=== PATIENT | female | born 1990 | race Caucasian/White ===

== ENCOUNTER 2019-05-31 10:35 | Outpatient (CLI) | payer BC, SELFPAY ==
--- NOTE | 2019-05-31 10:47 | XR_ITS ---
WS: [id number] Right wrist, 3 views, 05/31/2019 Clinical Data: wrist pain Comparison: Right wrist, 01/11/2019. Findings: No fractures or dislocations are seen. The carpal bones are intact. There is no soft tissue swelling. The distal radius and ulna are not remarkable. XR/XR wrist RT min 3V* [id number] Impression: Negative right wrist.
== END 2019-05-31 10:36 | disposition home or self-care (01) ==
LOC: RAD 10:37
PROVIDERS: Family Provider Nurse Practitioner Family; PCP Nurse Practitioner Family; Visit Provider Orthopaedic Surgery
DX: M25.531 Pain in right wrist (principal)
CPT/HCPCS: 73110

== ENCOUNTER 2019-07-04 12:35 | Outpatient (CLI) | payer BC, SELFPAY ==
--- NOTE | 2019-07-04 12:59 | MR_ITS ---
WS: [id number] MRI WRIST ARTHROGRAM INDICATION: Wrist pain TECHNIQUE: Axial PD, axial T2, coronal PD, coronal T1, coronal STIR, coronal 3-D FSPGR, sagittal T1, and multiplanar post arthrogram imaging FINDINGS: No leakage of contrast through the scapholunate or lunotriquetral ligaments. No extension o f contrast into the midcarpal space. Scapholunate ligaments appear intact. Normal scaphoid and lunate . No evidence of bone marrow edema or avascular necrosis. Central and peripheral TFCC appears intact. No extension of contrast into the distal radial ulnar cecilia nt. No extension of contrast along the ulnar aspect of the wrist or extensor carpi ulnaris. Thickening and T2 signal normality involving the extensor carpi ulnaris consistent with tendinopathy. Tenosynovitis along the extensor carpi ulnaris. Small amount of tenosynovitis involving the extensor compartment tendons and extensor carpi radialis brevis and extensor pollicis longus. Flexor compartment tendons are normal in appearance. No bone mar row edema. MR/MR wrist RT wo/w con [id number] IMPRESSION: 1. Scapholunate and lunotriquetral ligaments appear intact. Normal scaphoid an d lunate. 2. TFCC appears intact. 3. Tendinopathy with tenosynovitis along the extensor carpi ulnaris. 4. Small amount of tenosynovitis involving the extensor compartment tendons de scribed above. 5. No acute fractures.
--- NOTE | 2019-07-04 12:59 | IR_ITS ---
WS: [id number] WRIST ARTHROGRAM RIGHT Fluoroscopic guided right wrist arthrogram CLINICAL INFORMATION: PAIN COMPARISON: None. PROCEDURE: The procedure including risks, benefits and complications were discussed with the patient, who agreed to proceed. Using sterile technique, the patient was prepped and draped in the usual ster ile fashion. After 1% lidocaine injection using fluoroscopic guidance, a 25-gauge spinal needle was a dvanced into the radiocarpal joint. Approximately 2.5cc of a solution containing 15 ml normal saline, 5 ml Omnipaque 240 and 0.1 ml gadolinium was administered. No immediate complications. FLUOROSCOPY TIME: 0.7 minutes. IR/[place] [id number] IMPRESSION: Uncomplicated fluoroscopic-guided right wrist arthrogram. MRI to follow.
[2019-07-04] MEDS: iohexol 240 mg/mL 50 mL Btl INTRA-ARTI (14:22)
== END 2019-07-04 12:36 | disposition home or self-care (01) ==
LOC: RADWPI 12:40
PROVIDERS: Family Provider Nurse Practitioner Family; PCP Nurse Practitioner Family; Visit Provider Orthopaedic Surgery
DX: M25.531 Pain in right wrist (principal); M65.88 Other synovitis and tenosynovitis, other site
CPT/HCPCS: 25246; 73223; 77002; A9579; Q9966

== ENCOUNTER 2019-08-15 06:28 | Day surgery (SDC) | payer BC, SELFPAY ==
[2019-08-14 13:05] VITALS: BMI 42.9
[2019-08-15 06:45] VITALS: BP 135/82; PULSE 75; RESP 18; TEMP 36.6; O2SAT 98
--- NOTE | 2019-08-15 06:47 | P.OP_ITS ---
Operative Report Date of procedure: August 15, 2019 Pre-op Diagnosis: right cubital tunnel Post-op diagnosis: same Procedure Done: Decompression of ulnar nerve at right elbow Pathology: none sent Surgeon: Donte Bledsoe Anesthesia: General Estimated blood loss (mL): 5 Tourniquet time (min): 30 Complications: No apparent complications Findings: Tight cubital tunnel. Thick brachial fascia overlaying ulnar nerve in arm. No tendency for ulnar nerve to subluxate following decompression Condition: stable Disposition: PACU Brief History: 28 y/o white female With complaints of numbness and tingling in her right ring and small fingers. Chest positive Tinel's sign in the lower aspect of the right arm along the course of the ulnar nerve. Subjectively she had decreased sensation in the ulnar nerve distribution. She had electrodiagnostic studies consistent with slowing of the ulnar nerve across the elbow. Risks, benefits potential complications of surgery discussed with the patient. Risks include aren't limited to: Infection, nerve/blood vessel/tendon injury, failure to retrieve all symptoms, wound healing complications. Medical complications can include blood clots, heart attack, stroke risk up to including . All questions were answered patient agreeable to proceed with surgery. Procedure: 1.5 g Zinacef Patient identified. Surgical site was signed. Surgical permit was signed. Patient was taken the operating room. She received 1.5 g of Zinacef intravenously for surgical prophylaxis. She was transferred to the operating room table. She is placed under general anesthesia without difficulty. The patient sterilely prepped and draped usual fashion. A sterile tourniquet was applied. A timeout was performed. The operative limb was exsanguinated with Esmarch bandage tourniquet inflated 250 members mercury pressure. A 10 cm curvilinear incision centered over the medial humeral epicondyle was made with a skin knife. Dissection was carried deeper using spreading scissors technique. Crossing veins coagulated with bipolar and standard electrocautery. Self- retaining retractors placed in the wound. We identified the brachial fascia. The brachial fascia was divided using scissors and then with tension elevating the brachial fascia off of the underlying ulnar nerve I pushing scissors technique was used to decompress the ulnar nerve for several centimeters proximal to the actual entrance into the cubital tunnel. Leash of vessels proximal to the cubital tunnel were dissected off of the ulnar nerve and coagulated with bipolar cautery then divided. Fascia the entrance of the cubital tunnel was then divided using scissors technique elevating the fascia off of the underlying ulnar nerve. Pushing scissors technique was then used to divide the heads of the flexor carpi ulnaris overlying the tendon for several centimeters in the proximal forearm. Verified the decompression was complete. The elbow was placed through a range of motion and the decompressed ulnar nerve showed no tendency to subluxate from behind the medial humeral epicondyle. The wound was irrigated with Betadine-containing saline solution and antibiotic containing saline solution. The incisions then closed in layers with Vicryl sutures for subcutaneous closure and rojelio on skin. The incision was injected 20 mL of a one-to-one mixture 1% lidocaine half percent Marcaine with epinephrine. Antibiotic ointment was applied followed by sterile dressings and a posterior splint plaster splint with Andreas overwrap. The tourniquet was deflated at the time of application of dressings. The patient was aroused from general anesthesia. She was taken to the recovery room. She tolerated surgery well. All counts were correct
--- NOTE | 2019-08-15 06:51 | W.PM.OPSUD ---
Surgery/Procedure H&P Update DATE OF PROCEDURE: August 15, 2019 DATE H&P PERFORMED: 07/23/19 H&P UPDATE INFORMATION: I have reviewed H&P completed within last 30 days and I have examined patient prior to procedure PREOP DIAGNOSIS: right cubital tunnel PRIMARY INDICATION FOR PROCEDURE: as above PLANNED PROCEDURE: Operation Date: 08/15/19 08:00 Proposed Procedures p right elbow ulnar nerve decompression vs transposition/ 98616/G56.20(Right) - DO rg Mccray Ulnar Nerve Transposition(Right) - Donte Bledsoe DO
[2019-08-15 06:54] LABS: OR HCG Qualitative Urine Negative (Negative)
--- NOTE | 2019-08-15 07:13 | ANES.PREANE2 ---
Pre-Anesthetic Assessment Pre-Anesthetic Assessment: Height/Weight: Height 1.63 m Weight 113.398 kg Temp Pulse Resp BP Pulse Ox 97.9 F 75 18 135/82 98 08/15/19 06:45 08/15/19 06:45 08/15/19 06:45 08/15/19 06:45 08/15/19 06:45 Preop Diagnosis: right cubital tunnel Proposed Procedure: Operation Date: 08/15/19 08:00 Proposed Procedures p right elbow ulnar nerve decompression vs transposition/ 10686/G56.20(Right) - Donte Bledsoe DO s Ulnar Nerve Transposition(Right) - Donte Bledsoe DO Social: Social History: No alcohol and No tobacco Exam: Pre-Anes Outpt Exam: alert, oriented x 3, clear to auscultation bilaterally and regular rate & rhythm Airway: Submandibular: WNL Cervical ROM: WNL MP: 2 Dentition: Other (teeth ok) History/ROS: No significant history except as noted Pulmonary: Pulmonary: None reported CV/HEM: CV/HEM: None reported : : None reported Hepatic: Hepatic: None reported GI: GI: GERD (occ) Metabolic: Metabolic: Morbid obesity Musc/skel: Musc/skel: None reported Neuropsych: Neuropsych: Anxiety, Depression and Neuropathy (right arm) Anesthetic Plan: ASA status: 2 Anesthesia: Anesthesia Evaluation and General Risk of > 500 ml blood loss (7ml/kg in children): No PFSH Anesthesia PFSH: Medical History Anxiety and depression Fungal toenail infection Neuropathy Surgical History History of placement of ear tubes Hx of meniscectomy of right knee Social History Smoking and tobacco status: never smoked Alcohol intake: never Data Anesthesia Other Labs: Laboratory Results - last 48 hr 08/15/19 06:45 Urine HCG, Qual Negative Cardiac Studies: No Data to Display
[2019-08-15] MEDS: ketorolac 30 mg/mL INJ IVP (07:20)
[2019-08-15] MEDS: sodium chloride 0.9% 1,000 ML 30 ML IV (07:20)
[2019-08-15] MEDS: cefUROXime 1,500 MG in sodium chloride 0.9% (plus) 50 ML 100 MG IV (07:51)
--- NOTE | 2019-08-15 08:16 | SUR.OPER ---
Pt says to not call her to let him know we started - just let him know when we are done
[2019-08-15] MEDS: neomycin-poly-bacitracin oint 28 gm 1 APPLIC TOPICAL (08:41)
--- NOTE | 2019-08-15 08:59 | W.PM.OPSUD ---
Surgery/Procedure H&P Update DATE OF PROCEDURE: August 15, 2019 DATE H&P PERFORMED: 07/23/19 H&P UPDATE INFORMATION: I have reviewed H&P completed within last 30 days, I have examined patient prior to procedure, Changes to prior documentation as noted here and H&P is in [facility] [place] [facility] EMR on date indicated PREOP DIAGNOSIS: right cubital tunnel PRIMARY INDICATION FOR PROCEDURE: as above PLANNED PROCEDURE: Operation Date: 08/15/19 08:00 Proposed Procedures p right elbow ulnar nerve decompression vs transposition/ 79619/G56.20(Right) - DO rg Mccray Ulnar Nerve Transposition(Right) - Donte Bledsoe DO
[2019-08-15 09:03] VITALS: BP 135/72; PULSE 98; RESP 20; TEMP 36.6; O2SAT 100
[2019-08-15 09:10] VITALS: BP 141/74; PULSE 93; RESP 19; O2SAT 100
[2019-08-15 09:15] VITALS: BP 143/83; PULSE 90; RESP 18; O2SAT 100
--- NOTE | 2019-08-15 09:19 | SUR.PHASEI ---
0905 PT HAS SENSATION/MOVEMENT TO R. HAND, CAP REFILL <3 SEC
[2019-08-15 09:20] VITALS: BP 145/79; PULSE 88; RESP 18; TEMP 36.9; O2SAT 95
== END 2019-08-15 09:57 | disposition home or self-care (01) ==
PROVIDERS: PCP Nurse Practitioner Family; Visit Provider Orthopaedic Surgery
PROC: (CPT 64718; principal; 2019-08-15 08:00)
DX: G56.21 Lesion of ulnar nerve, right upper limb (principal); K21.9 Gastro-esophageal reflux disease without esophagitis; E66.01 Morbid (severe) obesity due to excess calories; Z68.41 Body mass index [BMI] 40.0-44.9, adult
CPT/HCPCS: 64718; 12345; 81025; 84703; 96365; 96374; J0131; J0697; J1100; J1580; J1885; J2001; J2405; J2704; J3010; J3490; J7030

== ENCOUNTER 2019-09-24 06:00 | Outpatient (RCR) | payer BC, SELFPAY | END 2019-10-18 23:59 | disposition home or self-care (01) | LOC: TOT 06:00 | PROVIDERS: PCP Nurse Practitioner Family; Referring Provider Orthopaedic Surgery; Visit Provider Orthopaedic Surgery | DX: M65.831 Other synovitis and tenosynovitis, right forearm (principal) | CPT/HCPCS: 97035; 97110; 97165; 97530 ==

== ENCOUNTER 2019-10-19 06:00 | Outpatient (RCR) | payer BC, SELFPAY | END 2019-11-18 23:59 | disposition home or self-care (01) | LOC: TOT 06:00 | PROVIDERS: PCP Nurse Practitioner Family; Referring Provider Orthopaedic Surgery; Visit Provider Orthopaedic Surgery | DX: M77.9 Enthesopathy, unspecified (principal) | CPT/HCPCS: 97035; 97110; 97140; 97530 ==

== ENCOUNTER 2019-11-19 06:00 | Outpatient (RCR) | payer BC, SELFPAY | END 2019-12-18 23:59 | disposition home or self-care (01) | LOC: TOT 06:00 | PROVIDERS: PCP Nurse Practitioner Family; Referring Provider Orthopaedic Surgery; Visit Provider Orthopaedic Surgery | DX: M77.9 Enthesopathy, unspecified (principal) | CPT/HCPCS: 97035; 97110; 97140; 97530 ==

== ENCOUNTER 2019-12-19 06:00 | Outpatient (RCR) | payer BC, SELFPAY | END 2020-01-18 23:59 | disposition home or self-care (01) | LOC: TOT 06:00 | PROVIDERS: PCP Nurse Practitioner Family; Referring Provider Orthopaedic Surgery; Visit Provider Orthopaedic Surgery | DX: M77.8 Other enthesopathies, not elsewhere classified (principal) | CPT/HCPCS: 97018; 97035; 97110; 97140 ==

== ENCOUNTER 2020-01-19 06:00 | Outpatient (RCR) | payer BC, SELFPAY | END 2020-02-17 23:59 | disposition home or self-care (01) | LOC: TOT 06:00 | PROVIDERS: PCP Nurse Practitioner Family; Referring Provider Orthopaedic Surgery; Visit Provider Orthopaedic Surgery | DX: M67.833 Other specified disorders of tendon, right wrist (principal) | CPT/HCPCS: 97018; 97035; 97110 ==

== ENCOUNTER 2020-02-18 06:00 | Outpatient (RCR) | payer BC, SELFPAY | END 2020-03-19 23:59 | disposition home or self-care (01) | LOC: TOT 06:00 | PROVIDERS: PCP Nurse Practitioner Family; Referring Provider Orthopaedic Surgery; Visit Provider Orthopaedic Surgery | DX: M77.8 Other enthesopathies, not elsewhere classified (principal) | CPT/HCPCS: 97110; 97140 ==

== ENCOUNTER → 2020-10-06 10:27 | Outpatient (BNVA) | payer BC, SELFPAY | PROVIDERS: PCP Nurse Practitioner Family; Visit Provider Podiatrist Foot & Ankle Surgery | DX: B35.1 Tinea unguium (principal); L60.3 Nail dystrophy | CPT/HCPCS: 82977; 83615; 84450; 84460 ==

== ENCOUNTER → 2020-11-30 11:53 | Outpatient (BNVA) | payer BC, SELFPAY | PROVIDERS: PCP Nurse Practitioner Family; Visit Provider Podiatrist Foot & Ankle Surgery | DX: B35.1 Tinea unguium (principal); Z79.899 Other long term (current) drug therapy | CPT/HCPCS: 82977; 83615; 84450; 84460 ==

== ENCOUNTER 2021-03-19 09:31 | Outpatient (CLI) | payer BC, SELFPAY ==
[2021-03-19 08:25] VITALS: BMI 41.1
[2021-03-19 11:00] VITALS: BP 122/84; PULSE 66; RESP 18; TEMP 36.8; O2SAT 97
[2021-03-19 11:33] VITALS: BP 122/84; PULSE 72; RESP 17; TEMP 36.6; O2SAT 98
[2021-03-19 12:33] VITALS: BP 120/85; PULSE 70; RESP 17; TEMP 36.8; O2SAT 97
== END 2021-03-19 09:32 | disposition home or self-care (01) ==
LOC: OPS 09:32
PROVIDERS: PCP Nurse Practitioner Family; Visit Provider Nurse Practitioner Family
DX: U07.1 COVID-19 (principal)
CPT/HCPCS: 96365

== ENCOUNTER → 2023-05-22 09:40 | Outpatient (BNVA) | payer BC, SELFPAY | PROVIDERS: PCP Nurse Practitioner Family; Visit Provider Nurse Practitioner Family | DX: E66.01 Morbid (severe) obesity due to excess calories (principal); Z68.41 Body mass index [BMI] 40.0-44.9, adult | CPT/HCPCS: 80053; 80061; 83036; 84443; 85025 ==